=== PATIENT | male | born 1980 | race Caucasian/White ===

== ENCOUNTER → 2019-11-18 | Day surgery (SDC) | payer BC ==
[~2019-11-18] MED LIST: ACETAMINOPHEN 325 MG TABLET PO PRN; ALBUTEROL SULFATE 2.5 MG/3 ML NEBU. NEB PRN; ATROPINE 0.5 MG/5 ML DISP.SYRIN. IV PRN; IV RINGERS SOLUTION,LACTATED 1,000 ML IV SCH; ONDANSETRON PF 4 MG/2 ML VIAL. IV PRN; PHENOL ORAL SPRAY 177ML BOTTLE. MM PRN; PROPOFOL 20 ML IV ONE; diphenhydrAMINE 50 MG/ML VIAL IV PRN
[2019-11-18 10:11] VITALS: BP 118/54
--- NOTE | 2019-11-19 15:07 | PATHOLOGY ---
[facility] Accession Number: [id number] . 01 Material submitted: . stomach - ANTRUM BX . 01 Clinical history: . None provided . 02 Diagnosis: Gastric biopsy, antrum: - Active chronic gastritis, moderate to marked, with numerous Helicobacter organisms identified. (JPM:[facility] 11/19/2019) [facility] 11/19/2019 0910 Local . 02 Comment: Sections of the gastric antral biopsy show congestion and moderate to marked active chronic inflammation. A properly controlled immunohistochemical for Helicobacter reveals numerous Helicobacter organisms. (JPM:[facility] 11/19/2019) . Special stain performed: Immunoperoxidase for Helicobacter . 02 Electronically signed: . Fuad Berrios MD, Pathologist NPI- [id number] . 01 Gross description: . The specimen is received in formalin, labeled "Lucien Bacon, antrum biopsy, H. pylori". Received is a segment of pale juarez soft tissue measuring 0.3 cm in maximum dimensions. The specimen is submitted entirely in cassette A1. ([facility]; 11/18/2019) [facility]A/[facility] 11/18/2019 1610 Local . 02 Pathologist provided ICD-10: K29.50, B96.81 . 02 CPT . 958033, E02656 Specimen Comment: A courtesy copy of this report has been sent to [phone], [phone] Specimen Comment: [phone] Specimen Comment: Report sent to / DR RUIZ Performed at: 01 [facility] [address], [place] [id number] MD Julien Nuñez MD Phone: [phone] Performed at: 02 [facility] [address] [place], [place] [id number] MD Fuad Berrios MD Phone: [phone]
== END ==
LOC: SURG 08:24
PROVIDERS: ATTEND Surgery
DX: K21.0 Gastro-esophageal reflux disease with esophagitis (principal); K29.50 Unspecified chronic gastritis without bleeding; B96.81 Helicobacter pylori [H. pylori] as the cause of diseases classified elsewhere; I10 Essential (primary) hypertension; F17.210 Nicotine dependence, cigarettes, uncomplicated
CPT/HCPCS: 43239; 88305; 88342; J2704; J7120